=== PATIENT | male | born 1995 | race Caucasian/White ===

== ENCOUNTER 2017-07-04 07:11 | Emergency (ER) | payer OTHER, MEDICAID, SELFPAY ==
[2017-07-04] MEDS: PERCOCET 5MG/325MG TAB PO (07:54)
== END 2017-07-04 09:36 | disposition home or self-care (01) ==
LOC: M ED 07:11
DX: S93.401A Sprain of unspecified ligament of right ankle, initial encounter (principal); X50.0XXA Overexertion from strenuous movement or load, initial encounter; Y92.85 Railroad track as the place of occurrence of the external cause; Z88.0 Allergy status to penicillin; Z88.8 Allergy status to other drugs, medicaments and biological substances; F17.210 Nicotine dependence, cigarettes, uncomplicated
CPT/HCPCS: 73590

== ENCOUNTER 2019-06-11 21:55 | Emergency (ER) | payer MEDICAID, OTHER, SELFPAY ==
[~2019-06-11] VITALS: Ht 177.8 cm; Wt 115.6 kg
[~2019-06-11 21:55] MED LIST: IBUP-1022 PO; PERC5TAB12 PO
[2019-06-11] MEDS ORDERED: MEDICAL MARIJUANNA (22:04)
[2019-06-11] MEDS ORDERED: ALBUTEROL 90 MCG/ACT 8GM HFA INHALER INH ONE (22:45)
[2019-06-11] MEDS ORDERED: VENTAER INH (23:16)
[2019-06-11 23:36] VITALS: BP 134/62
--- NOTE | 2019-06-12 00:24 | ECGEPIP ---
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
--- NOTE | 2019-06-12 02:01 | REP ---
Clinical: Shortness of breath . Comparison: 07/26/2015 . Findings: The mediastinum and cardiac silhouette are stable and within normal limits for portable technique. The lung mckeon are clear without acute consolidation, effusion, or pneumothorax. Skeletal structures are intact. Impression: No acute cardiopulmonary process appreciated. Electronically Signed by Edgar Kothari MD 06/12/2019 01:51 A
== END 2019-06-11 23:39 | disposition home or self-care (01) ==
LOC: M ED 21:55
DX: J98.01 Acute bronchospasm (principal); R07.9 Chest pain, unspecified; F17.210 Nicotine dependence, cigarettes, uncomplicated; Z20.828 Contact with and (suspected) exposure to other viral communicable diseases; Z88.1 Allergy status to other antibiotic agents; Z88.8 Allergy status to other drugs, medicaments and biological substances
CPT/HCPCS: 36415; 71045; 87486; 87581; 87633; 87798; 93005; 94664; 99284; U0002

== ENCOUNTER 2019-10-21 07:30 | Emergency (ER) | payer OTHER ==
[~2019-10-21 07:30] MED LIST changes: +MEDICAL MARIJUANNA; +VENTAER INH
== END 2019-10-21 08:10 | disposition home or self-care (01) ==
LOC: M ED 07:30
DX: J30.9 Allergic rhinitis, unspecified (principal); J98.01 Acute bronchospasm; J45.909 Unspecified asthma, uncomplicated; Z79.899 Other long term (current) drug therapy; Z88.0 Allergy status to penicillin; Z88.8 Allergy status to other drugs, medicaments and biological substances

== ENCOUNTER 2020-03-15 23:03 | Emergency (ER) | payer OTHER ==
[~2020-03-15] VITALS: Ht 177.8 cm; Wt 125.7 kg
--- OUTSIDE RECORDS SUMMARY | 2020-03-15 23:15 | CCD ---
Author Author [facility] Organization [facility] Address Unknown Phone Unavailable Care Team Providers Care Customer Engagement Specialist Name Role Phone [email or web address] Unavailable Unavailable Re-disclosure Warning The records that you are about to access may contain information from federally-assisted alcohol or drug abuse programs. If such information is present, then the following federally mandated warning applies: This information has been disclosed to you from records protected by federal confidentiality rules (42 CFR part 2). The federal rules prohibit you from making any further disclosure of this information unless further disclosure is expressly permitted by the written consent of the person to whom it pertains or as otherwise permitted by 42 CFR part 2. A general authorization for the release of medical or other information is NOT sufficient for this purpose. The Federal rules restrict any use of the information to criminally investigate or prosecute any alcohol or drug abuse patient.The records that you are about to access may contain highly sensitive health information, the redisclosure of which is protected by Article 27-F of the [facility] Public Health law. If you continue you may have access to information: Regarding HIV / AIDS; Provided by facilities licensed or operated by the [facility] Office of Mental Health; or Provided by the [facility] Office for People With Developmental Disabilities. If such information is present, then the following [facility] mandated warning applies: This information has been disclosed to you from confidential records which are protected by state law. State law prohibits you from making any further disclosure of this information without the specific written consent of the person to whom it pertains, or as otherwise permitted by law. Any unauthorized further disclosure in violation of state law may result in a fine or long-term sentence or both. A general authorization for the release of medical or other information is NOT sufficient authorization for further disc losure. Family History Family Member Name Family Member Gender Family Member Status Date o f Status Description Data Source(s) Unknown Male Problem MEDENT ([facility]) Unknown Unknown Problem MEDENT ([facility]) Unknown Female Encounters Encounter Providers Location Date Indications Data Source(s ) Unknown [address] [facility] [address] 08/26/2019 12:00:00 AM EDT eCW1 ([facility]) Outpatient Attender: [id number] [facility] 07/22/2019 07:42:25 PM EDT [facility] Outpatient 06/24/2019 06:08:00 AM EDT [facility] Imaging Insurance Providers Payer name Policy type / Coverage type Policy ID Covered libertarian ID Covered libertarian's relationship to contreras Policy Contreras Plan Information [facility] [place] [id number] SP [id number] EMEDNY [id number] SP [id number] SELF PAY ONLY UNAVAILABLE SP UNAV AILABLE [facility](MCAID) O [id number] S [id number] [facility] [place] [id number] SP [id number] [facility] Health Maintenance Organization (HMO) [id number] Self [id number] [facility] Health Maintenance Organization (HMO) [id number] Self [id number] ANSI-Medicaid [id number] ANSI-Medicaid [id number] ANSI-Medicaid [id number] ANSI-Medicaid [id number] ANSI-Medicaid [id number] MEDICAID [id number] SP [id number] UN COMMUNITY PLAN XIX [id number] 18 [id number] [facility] Health Maintenance Organization (HMO) [id number] Self [id number] [facility] [id number] SP [id number] [facility] Hmo Commercial Self SELF PAY UNAVAILABLE SP UNAVAILA BLE MEDICAID - CLINIC [id number] DJ [id number] Results ID Date Data Source [id number] 06/11/2019 10:47:00 PM EDT [facility] Name Value Range Interpretation Code Description Data Layne rce(s) Supporting Document(s) SARS CORONAVIRUS 2 RNA [facility] This lab was ordered by [facility] and reported by [facility]. Procedure
--- OUTSIDE RECORDS SUMMARY | 2020-03-15 23:53 | CCD ---
Author Author [facility] Organization [facility] Address Unknown Phone Unavailable Care Team Providers Care Claim Clerk Name Role Phone [facility], [email or web address] Unavailable Unavailable Re-disclosure Warning The [...] is protected by Article 27-F of the [facility] Public Health law. If you continue you may have access to information: Regarding HIV / AIDS; Provided by facilities licensed or operated by the [facility] Office of Mental Health; or Provided by the [facility] Office for People With Developmental Disabilities. If such information is present, then the following [facility] mandated warning applies: This information has [...] law may result in a fine or mcc sentence or both. A general authorization for the release of medical or other information is NOT sufficient authorization for further disc losure. Family History Family Member Name Family Member Gender Family Member Status Date o f Status Description Data Source(s) Unknown Male Problem MEDENT ([facility]) Unknown Unknown Problem MEDENT ([facility]) Unknown Female Encounters Encounter Providers Location Date Indications Data Source(s ) Unknown [address] [facility] [address] 08/26/2019 12:00:00 AM EDT [facility] Attender: [id number] [facility] 07/22/2019 07:42:25 PM EDT [facility] Outpatient 06/24/2019 06:08:00 AM EDT [facility] Imaging Insurance Providers Payer name Policy type / Coverage type Policy ID Covered constitution party ID Covered constitution party's relationship to contreras Policy Contreras Plan Information [facility] [id number] SP [id number] [facility] COMMUNITY PLAN [facility] [place] [place] [id number] SP [id number] EMEDNY [id number] SP [id number] SELF PAY ONLY UNAVAILABLE SP UNAV AILABLE [facility](MCAID) O [id number] S [id number] [facility] COMMUNITY PLAN [facility] [place] [id number] SP [id number] [facility] Health Maintenance Organization (HMO) [id number] Self [id number] [facility] Health Maintenance Organization (HMO) [id number] Self [id number] [facility] [id number] ANSI-Medicaid [id number] ANSI-Medicaid [id number] ANSI-Medicaid [id number] ANSI-Medicaid [id number] MEDICAID [id number] SP [id number] [employer] COMMUNITY PLAN XIX [id number] 18 [id number] [facility] Health Maintenance Organization (HMO) [id number] Self [id number] UN COMMUNITY PLAN MCDHMO [id number] SP [id number] [facility] Hmo Commercial Self SELF PAY UNAVAILABLE SP UNAVAILA BLE MEDICAID - CLINIC [id number] DJ [id number] Results ID Date Data Source [id number] 06/11/2019 10:47:00 PM EDT [facility] Name Value Range Interpretation Code Description Data Layne rce(s) Supporting Document(s) SARS CORONAVIRUS 2 RNA [facility] This lab was ordered by [facility] and reported by [facility]. Procedure
[2020-03-16] MEDS ORDERED: IBUPROFEN 600MG TAB PO ONE (00:30)
[2020-03-16] MEDS ORDERED: BENZONATATE 100 MG CAP PO ONE (00:30)
[2020-03-16] MEDS ORDERED: ALBUTEROL 90 MCG/ACT 8GM HFA INHALER INH ONE (00:30)
[2020-03-16] MEDS ORDERED: IBUP-1022 PO (01:56)
[2020-03-16] MEDS ORDERED: TESS100C PO (01:56)
[2020-03-16] MEDS ORDERED: PROAAER10 INH (01:56)
[2020-03-16 02:15] VITALS: BP 117/61
--- NOTE | 2020-03-16 09:21 | REP ---
INDICATION: wheezes, SOB, cough. Repeat dictation. Preliminary report is provided at the time of the exam by guanako LOVE. COMPARISON: June 11, 2019. TECHNIQUE: Portable upright AP chest radiograph. FINDINGS: The lungs are well inflated and free of infiltrate. Pleural angles are sharp. Heart size is normal. Pulmonary vasculature is not increased. IMPRESSION: No active disease. <Electronically signed by Celso Loving > 03/16/20 0917
== END 2020-03-16 02:15 | disposition home or self-care (01) ==
LOC: M ED 23:03
DX: J06.9 Acute upper respiratory infection, unspecified (principal); R05 Cough; R09.81 Nasal congestion; J45.909 Unspecified asthma, uncomplicated; F17.200 Nicotine dependence, unspecified, uncomplicated; Z88.1 Allergy status to other antibiotic agents; Z88.8 Allergy status to other drugs, medicaments and biological substances
CPT/HCPCS: 71045; 99283; U0003

== ENCOUNTER 2020-03-19 08:44 | Emergency (ER) | payer OTHER ==
[~2020-03-19] VITALS: Ht 177.8 cm; Wt 124.1 kg
[~2020-03-19 08:44] MED LIST changes: +PROAAER10 INH; +TESS100C PO
[2020-03-19 08:45] VITALS: BP 133/58
--- OUTSIDE RECORDS SUMMARY | 2020-03-19 08:51 | CCD ---
Author Author [facility] Organization [facility] Address Unknown Phone Unavailable Care Team Providers Care Sales Product Specialist Name Role Phone [facility], [id number] Unavailable Unavailable Re-disclosure Warning The records [...] is protected by Article 27-F of the [facility] Public Health law. If you continue you may have access to information: Regarding HIV / AIDS; Provided by facilities licensed or operated by the [facility] Office of Mental Health; or Provided by the [facility] Office for People With Developmental Disabilities. If such information is present, then the following [facility] mandated warning applies: This information has been [...] Source(s) Unknown Male Problem MEDENT ([facility]) Unknown Unknown Problem MEDENT ([facility]) Unknown Female Encounters Encounter Providers Location Date Indications Data Source(s ) Unknown [address] [facility] [address] 08/26/2019 12:00:00 AM EDT eCW ([facility]) Outpatient Attender: [id number] [facility] 07/22/2019 07:42:25 PM EDT [facility] Outpatient 06/24/2019 06:08:00 AM EDT [facility] Medications Medication Brand Name Start Date Product Form Dose Route Admi nistrative Instructions Pharmacy Instructions Status Indications Reaction Description Data Source(s) 90 mcg/actuation 03/16/2020 12:00:00 AM EST HFA aerosol inha ler 18 INHALE TWO PUFFS BY MOUTH EVERY 4 TO 6 HOURS NEEDED FOR WHEEZING INHALE TWO PUFFS BY MOUTH EVERY 4 TO 6 HOURS NEEDED FOR WHEEZING SOLD: 03/17/2020 [facility] 600 mg 03/16/2020 12:00:00 AM EST tablet 30 TAKE ONE TABLET BY MOUTH EVERY 6 HOURS NEEDED FOR PAIN TAKE ONE TABLET BY MOUTH EVERY 6 HOURS A S NEEDED FOR PAIN SOLD: 03/17/2020 [facility] benzonatate 100 MG Oral Capsule BENZONATATE 03/16/2020 12:00:00 AM EST capsule 30 TAKE ONE CAPSULE BY MOUTH THREE TIMES A DAY FOR COUGH TAKE ONE CAPSULE BY MOUTH THREE TIMES A DAY FOR COUGH SOLD: 03/17/2020 [facility] Insurance Providers Payer name Policy type / Coverage type Policy ID Covered alliance party ID Covered alliance party's relationship to contreras Policy Contreras Plan Information [facility] [id number] SP [id number] [facility] [id number] SP [id number] EMEDNY [id number] SP [id number] SELF PAY ONLY UNAVAILABLE SP UNAV AILABLE [facility] O [id number] S [id number] [facility] [id number] SP [id number] [facility] Health Maintenance Organization (HMO) [id number] Self [id number] [facility] Health Maintenance Organization (HMO) [id number] Self [id number] [facility]-Medicaid [id number] ANSI-Medicaid [id number] ANSI-Medicaid [id number] ANSI-Medicaid [id number] ANSI-Medicaid [id number] MEDICAID [id number] SP [id number] COMMUNITY HEALTH COMMUNITY PLAN XIX [id number] 18 [id number] [facility] Health Maintenance Organization (HMO) [id number] Self [id number] [facility] [id number] SP [id number] [facility] Self SELF PAY UNAVAILABLE SP UNAVAILA BLE MEDICAID - CLINIC [id number] DJ [id number] Results ID Date Data Source [id number] 03/16/2020 01:08:00 AM EST [facility] Name Value Range Interpretation Code Description Data Layne rce(s) Supporting Document(s) SARS COVID ANTIGEN NEGATIVE [facility] This lab was ordered by YEE king nd reported by [facility]. ID Date Data Source [id number] 02/15/2020 12:00:00 AM EST [facility] Name Value Range Interpretation Code Description Data Layne rce(s) Supporting Document(s) SARS-CoV2 Rapid Antigen Negative [facility] This lab was ordered by [facility] and reported by [facility]. ID Date Data Source [id number] 06/11/2019 10:47:00 PM EDT [facility] Name Value Range Interpretation Code Description Data Layne rce(s) Supporting Document(s) SARS CORONAVIRUS 2 RNA [facility] This lab was ordered by [facility] and reported by [facility]. Procedure
--- NOTE | 2020-03-19 09:45 | REP ---
INDICATION: mod swelling, wheezing. COMPARISON: None. TECHNIQUE: Three views, AP and lateral. FINDINGS: Epiglottis and aryepiglottic folds are radiographically normal. Retropharyngeal soft tissues are not widened. Glottic and subglottic airway appears intact. No neck mass or abnormal soft tissue density is seen. No bony abnormality. IMPRESSION: Negative soft tissue neck radiographs. <Electronically signed by Celso Loving > 03/19/20 0977
--- OUTSIDE RECORDS SUMMARY | 2020-03-19 09:52 | CCD ---
Author Author [facility] Organization [facility] Address Unknown Phone Unavailable Care Team Providers Care Auto Rental Clerk Name Role Phone [facility], [email or web address] Unavailable Unavailable Re-disclosure Warning The records [...] is protected by Article 27-F of the [facility] Public Health law. If you continue you may have access to information: Regarding HIV / AIDS; Provided by facilities licensed or operated by the [facility] Office of Mental Health; or Provided by the [facility] Office for People With Developmental Disabilities. If such information is present, then the following [facility] mandated warning applies: This information has [...] law may result in a fine or intermediate sentence or both. A general authorization for the release of medical or other information is NOT sufficient authorization for further disc losure. Family History Family Member Name Family Member Gender Family Member Status Date o f Status Description Data Source(s) Unknown Male Problem MEDENT ([facility]) Unknown Unknown Problem MEDENT ([facility]) Unknown Female Encounters Encounter Providers Location Date Indications Data Source(s ) Unknown [address] [facility] [address] 08/26/2019 12:00:00 AM EDT [facility]) Outpatient Attender: [id number] [facility] 07/22/2019 07:42:[address] [facility] Outpatient 06/24/2019 06:08:00 AM EDT [facility] Imaging Medications Medication Brand Name Start Date [...] TIMES A DAY FOR COUGH SOLD: 03/17/2020 [facility] Insurance Providers Payer name Policy type / Coverage type Policy ID Covered libertarian ID Covered libertarian's relationship to contreras Policy Contreras Plan Information [facility] [id number] SP [id number] [facility] COMMUNITY [facility] [id number] SP [id number] EMEDNY [id number] SP [id number] SELF PAY ONLY UNAVAILABLE SP UNAV AILABLE [facility] O [id number] S [id number] [facility] [id number] SP [id number] [facility] Health Maintenance Organization (HMO) [id number] Self [id number] [facility] Health Maintenance Organization (HMO) [id number] Self [id number] ANSI-Medicaid [id number] ANSI-Medicaid [id number] ANSI-Medicaid [id number] ANSI-Medicaid [id number] ANSI-Medicaid [id number] MEDICAID [id number] SP [id number] [facility] COMMUNITY PLAN XIX [id number] 18 [id number] [facility] Health Maintenance Organization (HMO) [id number] Self [id number] [facility] [id number] SP [id number] [facility] Hmo Commercial Self SELF PAY UNAVAILABLE SP UNAVAILA BLE MEDICAID - CLINIC [id number] DJ [id number] Results ID Date Data Source [id number] 03/16/2020 01:08:00 AM EST [facility] Name Value Range Interpretation Code Description Data Layne rce(s) Supporting Document(s) SARS [facility] This lab was ordered by [facility] king nd reported by [facility]. ID Date Data Source [id number] 02/15/2020 12:00:00 AM EST [facility] Name Value Range Interpretation Code Description Data Layne rce(s) Supporting Document(s) SARS-CoV2 Rapid Antigen Negative [facility] This lab was ordered by [facility] and reported by [facility]. ID Date Data Source [id number] 06/11/2019 10:47:00 PM EDT [facility] Name Value Range Interpretation Code Description Data Layne rce(s) Supporting Document(s) SARS CORONAVIRUS 2 RNA [facility] This lab was ordered by [facility] and reported by [facility]. Procedure
== END 2020-03-19 10:43 | disposition home or self-care (01) ==
LOC: M ED 08:44
DX: H20.9 Unspecified iridocyclitis (principal); R09.81 Nasal congestion; F43.10 Post-traumatic stress disorder, unspecified; F17.200 Nicotine dependence, unspecified, uncomplicated; F12.10 Cannabis abuse, uncomplicated; Z88.1 Allergy status to other antibiotic agents; Z88.8 Allergy status to other drugs, medicaments and biological substances

== ENCOUNTER 2021-04-05 08:36 | Emergency (ER) | payer BC, MEDICAID ==
[~2021-04-05] VITALS: Ht 175.3 cm; Wt 136.3 kg
[2021-04-05 08:37] VITALS: BP 128/60
[2021-04-05] MEDS ORDERED: PROPARACAINE 0.5% OPHTH SOL 15ML OD ONE (10:10)
[2021-04-05] MEDS ORDERED: FLUORESCEIN OPHTH 1 MG STRIP OD ONE (10:10)
[2021-04-05] MEDS ORDERED: BACT800T5 PO (12:07)
[2021-04-05] MEDS ORDERED: POLYSOL OP (12:08)
== END 2021-04-05 12:18 | disposition home or self-care (01) ==
LOC: M ED 08:36
DX: S05.01XA Injury of conjunctiva and corneal abrasion without foreign body, right eye, initial encounter (principal); L03.213 Periorbital cellulitis; X58.XXXA Exposure to other specified factors, initial encounter; Y92.9 Unspecified place or not applicable; Y93.9 Activity, unspecified; Y99.9 Unspecified external cause status; J45.909 Unspecified asthma, uncomplicated; F43.10 Post-traumatic stress disorder, unspecified; F12.10 Cannabis abuse, uncomplicated; F17.200 Nicotine dependence, unspecified, uncomplicated; Z88.0 Allergy status to penicillin; Z88.8 Allergy status to other drugs, medicaments and biological substances

== ENCOUNTER → 2022-10-23 | Outpatient (CLI) | payer OTHER ==
[~2022-10-23] MED LIST changes: +BACT800T5 PO; +POLYSOL OP
== END ==
LOC: M WUC 15:54
PROVIDERS: ATTEND Physician Assistant
DX: J20.9 Acute bronchitis, unspecified (principal); J98.4 Other disorders of lung

== ENCOUNTER → 2023-03-23 | Outpatient (CLI) | payer OTHER ==
[2023-03-23 10:50] LABS: BASO % 0.6 % (0.0-1.0); EOS # 0.3 10^3/uL (0.0-0.5); EOS % 5.6 % (0.0-3.0); HEMATOCRIT 41.6 % (42.0-52.0); HEMOGLOBIN 14.6 g/dl (13.5-17.5); LYMPH % 19.8 % (24.0-44.0); MEAN CORPUSCULAR HEMOGLOBIN 30.6 pg (27.0-33.0); MEAN CORPUSCULAR HGB CONC 35.1 g/dl (32.0-36.5); MEAN CORPUSCULAR VOLUME 87.2 fl (80.0-96.0); MONO # 0.7 10^3/uL (0.0-0.8); MONO % 13.4 % (2.0-8.0); NEUTROPHILS # 3.2 10^3/uL (1.5-8.5); NEUTROPHILS % 60.4 % (36.0-66.0); PLATELET COUNT, AUTOMATED 259 10^3/uL (150-450); RED BLOOD COUNT 4.77 10^6/uL (4.30-6.10); WHITE BLOOD COUNT 5.2 10^3/uL (4.0-10.0)
[2023-03-23 11:11] LABS: ALBUMIN 3.8 G/DL (3.2-5.2); ALKALINE PHOSPHATASE 61 U/L (46-116); ALT/SGPT 87 U/L (7.0-40); AST/SGOT 43 U/L (<34); BLOOD UREA NITROGEN 14 MG/DL (9-23); CALCIUM LEVEL 8.7 MG/DL (8.5-10.1); CARBON DIOXIDE LEVEL 28 MMOL/L (20-31); CHLORIDE LEVEL 106 MMOL/L (98-107); CHOLESTEROL LEVEL 171 MG/DL (<200); CHOLESTEROL RISK RATIO 5.24 (<5); CREATININE FOR GFR 0.79 MG/DL (0.70-1.30); GLOMERULAR FILTRATION RATE > 60.0 (>60); GLUCOSE, FASTING 84 MG/DL (60-100); HDL CHOLESTEROL 32.6 MG/DL (>40); NON-HDL-C 138.4 MG/DL; POTASSIUM SERUM 4.5 MMOL/L (3.5-5.1); SODIUM LEVEL 138 MMOL/L (136-145); TOTAL PROTEIN 6.5 G/DL (5.7-8.2); TRIGLYCERIDES LEVEL 72 MG/DL (<150)
[2023-03-23 11:14] LABS: THYROID STIMULATING HORMONE 2.734 uIU/ML (0.55-4.78)
== END ==
LOC: M WUC 08:13
PROVIDERS: ATTEND Family Medicine
DX: E66.01 Morbid (severe) obesity due to excess calories (principal); R00.2 Palpitations; R07.9 Chest pain, unspecified; J45.909 Unspecified asthma, uncomplicated; R59.0 Localized enlarged lymph nodes; Z68.41 Body mass index [BMI] 40.0-44.9, adult

== ENCOUNTER → 2023-03-26 | Outpatient (CLI) | payer OTHER ==
[~2023-03-26] MED LIST changes: +ISOVUE-370 76% 100ML VIAL As Ordered ONE
== END ==
LOC: M RAD 12:37
PROVIDERS: ATTEND Family Medicine
DX: R91.1 Solitary pulmonary nodule (principal); R59.0 Localized enlarged lymph nodes; R93.89 Abnormal findings on diagnostic imaging of other specified body structures
CPT/HCPCS: 71260; Q9967

== ENCOUNTER 2023-05-16 08:45 | Day surgery (SDC) | payer OTHER ==
[~2023-05-16] VITALS: Ht 175.3 cm; Wt 132.4 kg
[~2023-05-16 08:45] MED LIST changes: +ALBU2.5V10 INH; +ALBU8.5H INH; -ISOVUE-370 76% 100ML VIAL As Ordered ONE; +MELO15TA28 PO; +TIZA10TA PO
[2023-05-16] MEDS ORDERED: dexmedeTOMIDine (4MCG/ML)200MCG/50ML BTL (PRECEDEX) As Ordered ONE (10:28)
[2023-05-16] MEDS ORDERED: propofoL 200 MG/20 ML VIAL As Ordered ONE (10:28)
[2023-05-16] MEDS ORDERED: LIDOCAINE 2% 100MG/5ML SDV (FOR ANES.) As Ordered ONE (10:28)
[2023-05-16] MEDS ORDERED: SUGAMMADEX SODIUM 500 MG/5 ML VIAL (BRIDION) As Ordered ONE (10:28)
[2023-05-16] MEDS ORDERED: ONDANSETRON 4MG 2ML VIAL As Ordered ONE (10:28)
[2023-05-16] MEDS ORDERED: ROCURONIUM BROMIDE 50MG/5ML VIAL As Ordered ONE (10:28)
[2023-05-16] MEDS ORDERED: fentaNYL 100 MCG/2 ML INJECTION As Ordered ONE (10:28)
[2023-05-16] MEDS ORDERED: MIDAZOLAM INJ 2MG/2ML VIAL As Ordered ONE (10:29)
[2023-05-16] MEDS: CETACAINE SPRAY 5GM As Ordered ONE (11:30)
[2023-05-16] MEDS ORDERED: ACETAMINOPHEN 1000MG 100ML IV BAG As Ordered ONE (11:49)
[2023-05-16] MEDS ORDERED: fentaNYL 100 MCG/2 ML INJECTION IV PRN (12:20)
[2023-05-16] MEDS ORDERED: LR 1,000 ML IV SCH (12:20)
[2023-05-16] MEDS ORDERED: ONDANSETRON 4MG 2ML VIAL IV PRN (12:20)
[2023-05-16] MEDS ORDERED: oxyCODONE 5MG TAB PO PRN (12:20)
[2023-05-16] MEDS ORDERED: HYDROMORPHONE HCL 0.5 MG/ 0.5 ML SYRINGE IV PRN (12:20)
[2023-05-16] MEDS: EPINEPHrine 1MG/10ML SYRINGE 1.5IN As Ordered ONE (12:36)
[2023-05-16 13:02] VITALS: BP 136/82; TEMP 97.1; O2SAT 97
== END 2023-05-16 13:29 | disposition home or self-care (01) ==
LOC: M SDC 08:45
PROVIDERS: ATTEND Internal Medicine Critical Care Medicine
DX: R59.0 Localized enlarged lymph nodes (principal); J45.909 Unspecified asthma, uncomplicated; Z79.51 Long term (current) use of inhaled steroids; Z87.891 Personal history of nicotine dependence; K21.9 Gastro-esophageal reflux disease without esophagitis; F41.9 Anxiety disorder, unspecified; F32.A Depression, unspecified; Z79.899 Other long term (current) drug therapy; Z88.0 Allergy status to penicillin; Z88.8 Allergy status to other drugs, medicaments and biological substances
CPT/HCPCS: 31653; 71045; 88173; 88305; J0131; J1100; J2250; J2405; J3010

== ENCOUNTER → 2023-06-22 | Outpatient (CLI) | payer OTHER | LOC: M PLAIMG 08:27 | PROVIDERS: ATTEND Internal Medicine Critical Care Medicine | DX: R59.0 Localized enlarged lymph nodes (principal); R91.8 Other nonspecific abnormal finding of lung field ==

== ENCOUNTER → 2023-11-08 | Outpatient (CLI) | payer OTHER | LOC: M RAD 17:13 | PROVIDERS: ATTEND Internal Medicine Critical Care Medicine | DX: R91.8 Other nonspecific abnormal finding of lung field (principal) ==

== ENCOUNTER → 2024-05-30 | Outpatient (CLI) | payer OTHER ==
[2024-05-30 17:57] LABS: BASO # 0.1 10^3/uL (0.0-0.2); BASO % 0.6 % (0.0-1.0); EOS # 0.5 10^3/uL (0.0-0.5); EOS % 6.1 % (0.0-3.0); HEMATOCRIT 44.1 % (42.0-52.0); HEMOGLOBIN 15.7 g/dl (13.5-17.5); LYMPH # 2.2 10^3/uL (1.5-5.0); LYMPH % 24.4 % (24.0-44.0); MEAN CORPUSCULAR HEMOGLOBIN 30.9 pg (27.0-33.0); MEAN CORPUSCULAR HGB CONC 35.6 g/dl (32.0-36.5); MEAN CORPUSCULAR VOLUME 86.8 fl (80.0-96.0); MONO # 0.7 10^3/uL (0.0-0.8); NEUTROPHILS # 5.4 10^3/uL (1.5-8.5); NEUTROPHILS % 60.6 % (36.0-66.0); PLATELET COUNT, AUTOMATED 278 10^3/uL (150-450); RED BLOOD COUNT 5.08 10^6/uL (4.30-6.10); WHITE BLOOD COUNT 8.9 10^3/uL (4.0-10.0)
[2024-05-30 18:03] LABS: ALBUMIN 4.4 G/DL (3.2-5.2); ALKALINE PHOSPHATASE 66 U/L (40-129); ALT/SGPT 79 U/L (7.0-40); AST/SGOT 42 U/L (<34); BILIRUBIN,TOTAL 0.9 MG/DL (0.3-1.2); BLOOD UREA NITROGEN 13 MG/DL (9-23); CALCIUM LEVEL 9.9 MG/DL (8.5-10.1); CARBON DIOXIDE LEVEL 29 MMOL/L (20-31); CHLORIDE LEVEL 102 MMOL/L (98-107); CREATININE FOR GFR 0.81 MG/DL (0.70-1.30); GLOMERULAR FILTRATION RATE > 90.0 (>60); GLUCOSE, FASTING 77 MG/DL (60-100); POTASSIUM SERUM 4.7 MMOL/L (3.5-5.1); SODIUM LEVEL 141 MMOL/L (136-145); TOTAL PROTEIN 7.5 G/DL (5.7-8.2)
== END ==
LOC: M WUC 14:03
DX: R05.1 Acute cough (principal)

== ENCOUNTER 2024-06-17 18:29 | Emergency (ER) | payer OTHER ==
[~2024-06-17] VITALS: Ht 170.2 cm; Wt 141.2 kg
[2024-06-17 20:03] LABS: BASO % 0.5 % (0.0-1.0); EOS # 0.6 10^3/uL (0.0-0.5); HEMATOCRIT 39.7 % (42.0-52.0); HEMOGLOBIN 14.5 g/dl (13.5-17.5); LYMPH # 1.7 10^3/uL (1.5-5.0); LYMPH % 20.8 % (24.0-44.0); MEAN CORPUSCULAR HEMOGLOBIN 31.5 pg (27.0-33.0); MEAN CORPUSCULAR HGB CONC 36.5 g/dl (32.0-36.5); MEAN CORPUSCULAR VOLUME 86.1 fl (80.0-96.0); MONO # 0.9 10^3/uL (0.0-0.8); MONO % 10.9 % (2.0-8.0); NEUTROPHILS % 60.6 % (36.0-66.0); PLATELET COUNT, AUTOMATED 248 10^3/uL (150-450); RED BLOOD COUNT 4.61 10^6/uL (4.30-6.10); WHITE BLOOD COUNT 8.2 10^3/uL (4.0-10.0)
[2024-06-17 20:17] LABS: CK-MB VALUE MASS < 1.0 NG/ML (<3.6)
[2024-06-17 20:19] LABS: BLOOD UREA NITROGEN 14 MG/DL (9-23); CALCIUM LEVEL 8.9 MG/DL (8.5-10.1); CARBON DIOXIDE LEVEL 31 MMOL/L (20-31); CHLORIDE LEVEL 104 MMOL/L (98-107); CPK CREATINE PHOSPHOKINASE 194 U/L (46-171); CREATININE FOR GFR 1.01 MG/DL (0.70-1.30); GLOMERULAR FILTRATION RATE > 90.0 (>60); GLUCOSE, FASTING 84 MG/DL (60-100); MB/CK RELATIVE INDEX 0.51 (< OR =4); POTASSIUM SERUM 4.2 MMOL/L (3.5-5.1); SODIUM LEVEL 140 MMOL/L (136-145)
[2024-06-17 20:40] VITALS: BP 136/96; TEMP 98.4; O2SAT 98
== END 2024-06-17 20:40 | disposition left against medical advice (07) ==
LOC: M ED 18:29
DX: Z53.21 Procedure and treatment not carried out due to patient leaving prior to being seen by health care provider (principal)

== ENCOUNTER → 2024-10-31 | Outpatient (CLI) | payer OTHER ==
[~2024-10-31] MED LIST changes: -IBUP-1022 PO; +IBUP600T42 PO
== END ==
LOC: M SLEEP HO 10:39
PROVIDERS: ATTEND Family Medicine
DX: R06.83 Snoring (principal)